=== PATIENT | male | born 1960 | race Caucasian/White ===

== ENCOUNTER 2016-09-12 14:34 | Emergency (ER) | payer OTHER | END 2016-09-12 16:45 | disposition home or self-care (01) | LOC: D.ER 14:34 | DX: S05.42XA Penetrating wound of orbit with or without foreign body, left eye, initial encounter (principal); S91.012A Laceration without foreign body, left ankle, initial encounter; W19.XXXA Unspecified fall, initial encounter; Y93.89 Activity, other specified; Y92.89 Other specified places as the place of occurrence of the external cause; T14.8 Other injury of unspecified body region ==